=== PATIENT | male | born 1945 | race Caucasian/White ===

== ENCOUNTER 2016-06-11 10:25 | Emergency (ER) | payer MEDICARE, OTHER ==
[~2016-06-11 10:25] MED LIST: ASPIR 8181 MG PO; CALCIUM 600 +1 EACH PO; COZAAR50 MG PO; LORTAB 5-325 M1 EACH PO; MOBIC15 MG PO; NEXIUM40 MG PO; ONCE DAILY1 EACH PO; POLYETHYLENE GL17 GM PO; VIAGRA100 MG PO; ZINC OXIDE28 GM TOP; ZOLOFT50 MG PO
== END 2016-06-11 12:26 | disposition home or self-care (01) ==
LOC: ER 10:25
DX: S22.42XA Multiple fractures of ribs, left side, initial encounter for closed fracture (principal); K21.9 Gastro-esophageal reflux disease without esophagitis; I10 Essential (primary) hypertension; Z79.82 Long term (current) use of aspirin; Z79.899 Other long term (current) drug therapy; W19.XXXA Unspecified fall, initial encounter